=== PATIENT | male | born 1995 | race Caucasian/White ===

== ENCOUNTER 2021-11-04 08:39 | Outpatient (REF) | payer OTHER, SELFPAY ==
[2021-11-04 09:03] LABS: MANUAL DIFF FLAG NO
[2021-11-04 09:46] LABS: Basophils Percent Auto 0.6 % (0-2); Eosinophils Absolute Auto 0.2 X10*3/uL (0.0-0.4); Eosinophils Percent Auto 3.6 % (0-4); Hemoglobin 16.7 g/dl (14.0-18.0); Imm Gran Abs Auto 0.01 X10*3/uL (0.00-0.03); Imm Gran Pct Auto 0.2 % (0.0-0.4); Lymphocytes Absolute Auto 1.2 X10*3/uL (1.2-4.9); Lymphocytes Percent Auto 18.5 % (20-40); Mean Corpuscular HGB Conc 33.4 g/dl (31.0-36.0); Mean Corpuscular Hemoglobin 30.1 pg (27.0-33.0); Mean Corpuscular Volume 90.3 fL (80.0-98.0); Mean Platelet Volume 9.5 fL (9.4-12.4); Monocytes Absolute Auto 0.7 X10*3/uL (0.1-1.2); Monocytes Percent Auto 9.9 % (2-11); Neutrophils Absolute Auto 4.4 x10*3/uL (2.0-8.3); Neutrophils Percent Auto 67.2 % (45-73); Platelet Count 258 X10*3/uL (160-400); Red Blood Count 5.54 X10*6/uL (4.60-5.80); Red Cell Distribution Width 12.2 % (11.0-16.0); White Blood Count 6.6 X10*3/uL (4.8-10.8)
[2021-11-04 10:23] LABS: TSH reflex Free T4 1.03 uIU/mL (0.32-4.0); Vitamin D 25-OH Total 18.2 ng/mL (>30)
[2021-11-04 10:24] LABS: Alanine Aminotransferase 22 U/L (0-40); Albumin Level 4.3 g/dL (3.5-5.0); Alkaline Phosphatase 67 U/L (39-117); Anion Gap 11 (12-20); Aspartate Amino Transferase 20 U/L (5-37); Bilirubin Total 0.7 mg/dL (0.0-1.0); Blood Urea Nitrogen 22 mg/dL (9-16); C Reactive Protein 0.29 mg/dL (< or = 0.50); Calcium 10.1 mg/dL (8.4-10.2); Carbon Dioxide 29 mmol/L (22-29); Chloride 104 mmol/L (96-108); Cholesterol 201 mg/dL; Estimated Glomerular Filt Rate > 60; HDL Cholesterol 45 mg/dL; LDL Cholesterol Calculated 123 mg/dl; Potassium 4.3 mmol/L (3.3-5.1); Rheumatoid Factor 24.7 IU/mL (<15.0); Sodium 140 mmol/L (135-145); Total Protein 7.5 g/dL (6.5-8.0); Triglycerides 168 mg/dL
[2021-11-04 10:39] LABS: Glucose Fasting 53 mg/dL (60-99)
[2021-11-04 10:46] LABS: Appearance Urine CLEAR; Color Urine YELLOW; Glucose Urine UA NEG (NEG); Leukocyte Esterase Urine NEG (NEG); Nitrite Urine NEG (NEG); PH 5.5 (5.0-8.0); Specific Gravity - Urine 1.025 (1.005-1.025); Urine Blood NEG (NEG); Urine Ketones NEG (NEG); Urine Protein NEG (NEG-TRACE)
[2021-11-04 11:06] LABS: Erythrocyte Sedimentation Rate 7 MM/HR (0-15)
[2021-11-04 12:19] LABS: CT PCR NOT DETECTED (Not Detect.); NG PCR NOT DETECTED (Not Detect.)
[2021-11-06 07:52] LABS: HBS Num1 41.79 mIU/mL (0-7.99); HBc Num1 0.18 S/CO (0.00-0.79); HBsAGNum1 0.26 S/CO (0.00-0.99); HIV AB/AG Nonreactive (Nonreactive); HIV Num 1 0.08 S/CO (0.00-0.99); Hepatitis B Core Antibody Nonreactive (Nonreactive); Hepatitis B Surface Antigen Negative (Negative); ~HepC Num1 0.14 S/CO (0.00-0.79); ~Hepatitis B Surface Antibody REACTIVE (Nonreactive); ~Hepatitis C Antibody Nonreactive (Nonreactive)
[2021-11-06 08:38] LABS: Syphilis Screen Nonreactive (Nonreactive)
[2021-11-06 12:06] LABS: Anti Nuclear Antibody Screen NEGATIVE (NEGATIVE)
[2021-11-09 21:26] LABS: HSV 1 IgM IFA Negative (Negative); HSV 2 IgM IFA Negative (Negative)
== END 2021-11-04 08:40 | disposition home or self-care (01) ==
LOC: HO.LAB 08:39
PROVIDERS: Visit Provider Internal Medicine
DX: Z00.00 Encounter for general adult medical examination without abnormal findings (principal); I73.00 Raynaud's syndrome without gangrene; Z76.89 Persons encountering health services in other specified circumstances
CPT/HCPCS: 80053; 80061; 81003; 82306; 84443; 85025; 85652; 86038; 86039; 86140; 86431; 86695; 86696; 86704; 86706; 86780; 86803; 87340; 87389; 87491; 87591

== ENCOUNTER 2022-10-20 10:02 | Outpatient (REF) | payer OTHER, SELFPAY ==
[2022-10-20 10:47] LABS: MANUAL DIFF FLAG NO
[2022-10-20 11:06] LABS: Basophils Absolute Auto 0.1 X10*3/uL (0.0-0.2); Eosinophils Absolute Auto 0.2 X10*3/uL (0.0-0.4); Eosinophils Percent Auto 3.9 % (0-4); Hematocrit 49.2 % (42.0-52.0); Hemoglobin 16.5 g/dl (14.0-18.0); Imm Gran Abs Auto 0.01 X10*3/uL (0.00-0.03); Imm Gran Pct Auto 0.2 % (0.0-0.4); Lymphocytes Absolute Auto 1.4 X10*3/uL (1.2-4.9); Lymphocytes Percent Auto 28.3 % (20-40); Mean Corpuscular HGB Conc 33.5 g/dl (31.0-36.0); Mean Corpuscular Hemoglobin 29.2 pg (27.0-33.0); Mean Corpuscular Volume 87.1 fL (80.0-98.0); Mean Platelet Volume 9.2 fL (9.4-12.4); Monocytes Absolute Auto 0.5 X10*3/uL (0.1-1.2); Monocytes Percent Auto 10.4 % (2-11); Neutrophils Absolute Auto 2.8 x10*3/uL (2.0-8.3); Neutrophils Percent Auto 56.2 % (45-73); Platelet Count 268 X10*3/uL (160-400); Red Blood Count 5.65 X10*6/uL (4.60-5.80); Red Cell Distribution Width 12.2 % (11.0-16.0); White Blood Count 4.9 X10*3/uL (4.8-10.8)
[2022-10-20 11:22] LABS: Appearance Urine Clear; Color Urine Yellow; Glucose Urine UA Negative (Negative); Leukocyte Esterase Urine Negative (Negative); Nitrite Urine Negative (Negative); PH 6.5 (5.0-9.0); Specific Gravity - Urine 1.015 (1.005-1.025); Urine Blood Negative (Negative); Urine Ketones Negative (Negative); Urine Protein Negative (Neg-Trace)
[2022-10-20 11:41] LABS: Alanine Aminotransferase 16 U/L (0-40); Albumin Level 4.3 g/dL (3.5-5.0); Alkaline Phosphatase 67 U/L (39-117); Anion Gap 12 (12-20); Aspartate Amino Transferase 21 U/L (5-37); Bilirubin Total 1.3 mg/dL (0.0-1.0); Blood Urea Nitrogen 20 mg/dL (9-16); C Reactive Protein < 0.10 mg/dL (< or = 0.50); Calcium 9.9 mg/dL (8.4-10.2); Carbon Dioxide 28 mmol/L (22-29); Chloride 104 mmol/L (96-108); Cholesterol 204 mg/dL; Estimated Glomerular Filt Rate > 60; Glucose Fasting 89 mg/dL (60-99); HDL Cholesterol 46 mg/dL; LDL Cholesterol Calculated 139 mg/dl; Potassium 4.8 mmol/L (3.3-5.1); Sodium 139 mmol/L (135-145); Total Protein 7.2 g/dL (6.5-8.0); Triglycerides 97 mg/dL
[2022-10-20 11:51] LABS: Erythrocyte Sedimentation Rate 2 MM/HR (0-15)
[2022-10-20 11:58] LABS: TSH reflex Free T4 0.67 uIU/mL (0.32-4.0)
[2022-10-20 13:52] LABS: CT PCR NOT DETECTED (Not Detect.); NG PCR NOT DETECTED (Not Detect.)
[2022-10-22 09:21] LABS: Syphilis Screen Nonreactive (Nonreactive)
[2022-10-22 09:29] LABS: HBS Num1 35.44 mIU/mL (0-7.99); HBc Num1 0.06 S/CO (0.00-0.79); HIV AB/AG Nonreactive (Nonreactive); HIV Num 1 0.08 S/CO (0.00-0.99); Hepatitis B Core Antibody Nonreactive (Nonreactive); Hepatitis B Surface Antigen Negative (Negative); ~HepC Num1 0.13 S/CO (0.00-0.79); ~Hepatitis B Surface Antibody REACTIVE (Nonreactive); ~Hepatitis C Antibody Nonreactive (Nonreactive)
[2022-10-23 15:14] LABS: Cyclic Citrullinated Peptide <16 UNITS
[2022-10-25 12:39] LABS: HSV 1 IgM IFA Negative (Negative); HSV 2 IgM IFA Negative (Negative)
== END 2022-10-20 10:03 | disposition home or self-care (01) ==
LOC: HO.LAB 10:02
PROVIDERS: Visit Provider Internal Medicine
DX: Z00.00 Encounter for general adult medical examination without abnormal findings (principal); Z11.4 Encounter for screening for human immunodeficiency virus [HIV]; I10 Essential (primary) hypertension; Z20.2 Contact with and (suspected) exposure to infections with a predominantly sexual mode of transmission; E55.9 Vitamin D deficiency, unspecified; E78.00 Pure hypercholesterolemia, unspecified; I73.00 Raynaud's syndrome without gangrene; R30.0 Dysuria; R76.8 Other specified abnormal immunological findings in serum; Z76.89 Persons encountering health services in other specified circumstances
CPT/HCPCS: 0353U; 80053; 80061; 81003; 82306; 84443; 85025; 85652; 86140; 86200; 86695; 86696; 86704; 86706; 86780; 86803; 87340; 87389

== ENCOUNTER 2023-10-22 08:57 | Outpatient (AMB) | payer OTHER, SELFPAY ==
[2023-10-22 08:59] VITALS: BP 100/70; PULSE 77; O2SAT 99; BMI 26.8
--- NOTE | 2023-10-22 08:59 | A.OFFPC_ITS ---
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 Accompanied by: Self / Same As Patient Allergies Penicillins Allergy (Mild, Verified 10/22/23 09:16) Unknown Medication List - Last Reconciled 10/22/23 by Dimitrios Harrell MD cholecalciferol (vitamin D3) 50 mcg PO DAILY multivitamin (Daily Multi-Vitamin tablet) 1 tab PO DAILY Tobacco use date assessed: 10/22/23 Dental Screening Dental Screen Date: 10/22/23 Did you have a dental visit in the last 12 months?: Yes Did you have a dental problem in the last 6 months where you did not have access to dental care?: No Was dental information given to patient?: Patient has dentist HPI Annual Exam HPI Details Patient comes in today for his annual physical examination States that he feels okay He denies any headaches or dizziness Denies any chest pains, no SOB No nausea/vomiting, no abdominal pain No change in bowel habits noted Denies any acute urinary symptoms States that he has been seen by ENT last year for his enlarged tonsils and was advised against T & A as the risks of having his tonsils and adenoids removed outweigh the benefits but patient states that he had a bad bout of tonsillitis again this past August 2023 and he also ended up with gingivitis and he is now debating on whether to request again for reassessment for a tonsillectomy Would again also like to get checked for STDs in addition to his usual tests when he goes to the lab for his yearly check PENDING SALE TO [facility] Medical History Pure hypercholesterolemia Vitamin D deficiency Overweight (BMI 25.0-29.9) Raynaud's disease Enlarged tonsils and adenoids Surgical History No pertinent past surgical history Family History Mother Osteoporosis Father No problems noted. Social History Housing: Apartment Alcohol intake: current Alcohol intake frequency: a few times a week Patient Tobacco Use Status: Never used Tobacco e-Cigarette/Vaping Use: Never Used Second Hand Smoke Exposure: No service: No Current occupational status: employed Current occupation: clinical pharmacist Cognitive needs: No Hearing needs: No Vision needs: No Questionnaire PHQ-9 Over the last 2 weeks, how often have you been bothered by any of the following problems? 1. Little interest or pleasure in doing things: not at all 2. Feeling down, depressed, or hopeless: not at all 3. Trouble falling or staying asleep, or sleeping too much: not at all 4. Feeling tired or having little energy: not at all 5. Poor appetite or overeating: not at all 6. Feeling bad about yourself - or that you are a failure or have let yourself or your family down: not at all 7. Trouble concentrating on things, such as reading the newspaper or watching television: not at all 8. Moving or speaking so slowly that other people could have noticed. Or the opposite - being so fidgety or restless that you have been moving around a lot more than usual: not at all 9. Thoughts that you would be better off or of hurting yourself in some way: not at all Total score: 0 Depression Screening Interpretation: Negative Depression Screening Done: Yes [id number] - PHQ-9 Billing: Yes Source: Developed by Drs. Isaac Bustamante, Dulce Maria Cordoba, Yuniel Zuniga and colleagues, with an educational kiah from [employer]. Thrive Questionnaire Date Thrive assessed: 10/22/23 I am a: Patient What is your living situation today?: I have a steady place to live Within the past 12 months, did the food you bought not last and you didn't have the money to get more?: Never true Within the past 12 months, did you worry whether your food would run out before you got money to buy more?: Never true Do you have trouble paying for medicines?: No Do you have trouble getting transportation to medical appointments?: No Do you have trouble paying your heating and electricity bill?: No Do you have trouble taking care of your child, family member or friend?: No Do you have trouble with day-to-day activities such as bathing, preparing meals, shopping, managing finances, etc.?: No Are you currently unemployed and looking for a job?: No Are you interested in more education?: No Please select the resources that you would like help with: None Currently or been in a relationship where the following occur: no concerns reported AUDIT C Alcohol Use Questionnaire (AUDIT-C) 1. How often do you have a drink containing alcohol?: 2-3 times a week 2. How many drinks containing alcohol do you have on a typical day when you are drinking?: 1 or 2 3. How often do you have six or more drinks on one occasion?: Never Total Score: 3 Score Reviewed/Action Taken: Yes ARPITA-7 AMB Questionnaire ARPITA-7 Date ARPITA - 7 assessed: 10/22/23 Feeling nervous, anxious, or on edge: 0 = Not at all Not being able to stop or control worryin = Not at all Worrying too much about different things: 0 = Not at all Trouble relaxin = Not at all Being so restless that it is hard to sit still: 0 = Not at all Becoming easily annoyed or irritable: 0 = Not at all Feeling afraid as if something awful might happen: 0 = Not at all Total ARPITA-7 score (0-4 normal; 5-9 mild; 10-14 moderate; 15-21 severe): 0 Source: Developed by Drs. Isaac Bustamante, Dulce Maria Cordoba, Yuniel Zuniga and colleagues, with an educational kiah from [employer]. Review of Systems Const Denies chills, Denies fatigue, Denies fever(s), Denies headache(s), Denies malaise and Denies weakness Eyes Denies blurry vision, Denies change in vision, Denies irritation and Denies itchy eyes ENT Reports dysphagia (at times, mild, mostly due to his enlarged tonsils), Denies dizziness, Denies otalgia, Denies headache(s), Denies nasal congestion, Denies neck pain, Denies odynophagia and Denies sore throat Card Denies chest pain, Denies rapid heart rate, Denies irregular heart rhythm, Denies palpitations and Denies dyspnea Resp Denies chest congestion, Denies cough, Denies dyspnea and Denies wheezing GI Denies abdominal pain, Denies bloating, Denies constipation, Reports dysphagia (at times, mild, mostly due to his enlarged tonsils), Denies heartburn, Denies diarrhea, Denies nausea, Denies odynophagia and Denies vomiting Denies hematuria, Denies difficulty urinating, Denies dysuria, Denies urinary frequency and Denies urinary urgency Musc Denies back pain, Denies arthralgias, Denies joint swelling, Denies muscle weakness and Denies neck pain Skin/Breast Denies change in pigmentation, Denies lesions, Denies rash and Denies unusual bruising Neuro Denies dizziness, Denies headache(s), Denies paresthesias and Denies weakness Endo Denies fatigue and Denies palpitations Aller/Immun Denies itchy eyes and Denies wheezing Physical exam (Primary Care) Vital Signs: Last Vital Signs Pulse 77 10/22/23 08:59 BP 100/70 10/22/23 08:59 Pulse Ox 99 10/22/23 08:59 Oxygen Delivery Method Room Air 10/22/23 08:59 BMI result Body Mass Index 26.8 Tobacco/Smoking Status: Tobacco use Status Tobacco use date assessed 10/22/23 10/22/23 09:03 Patient Tobacco Use Status Never used Tobacco 10/22/23 09:03 e-Cigarette/Vaping Use Never Used 10/22/23 09:03 PHQ-9: PHQ-9 Score PHQ-9: Total score 0 10/22/23 09:03 Depression Screening Interpretation: Negative Thrive Assessment: Date of Thrive Assessment Date Thrive assessed 10/22/23 10/22/23 09:03 Currently or been in a relationship where the following occur: no concerns reported Const General: no acute distress, alert and awake Orientation/consciousness: patient oriented x3 [facility] Head: Yes normocephalic and Yes atraumatic Ears: external ears normal, TM's normal bilaterally and EAC's normal General nose exam: No nasal discharge present Face and sinus: Yes normal facial exam and Yes sinuses nontender Mouth: Normal oral and palatal mucosa present and tongue normal Teeth and gingiva: dentition normal Throat: Yes abnormal tonsil (significantly enlarged tonsils/adenoids bilaterally - grade 3) and Yes posterior oropharynx abnormal (narrow oropharynx with significantly enlarged tonsils/adenoids bilaterally) Eyes Eyelids: Yes eyelids normal Conjunctivae: conjunctivae normal Sclerae: sclerae normal Pupils: Equal, round and reactive pupils present EOM: EOMs intact bilaterally Neck Neck: Yes no lymphadenopathy and Yes supple Thyroid: Thyroid normal Lymphatic: no lymphadenopathy noted Resp Auscultation: clear to auscultation bilaterally, no rales and no wheezes Cardio Rate: regular rate Rhythm: regular rhythm Heart sounds: no murmurs GI Palpation (GI): Soft to palpation, nontender and No hepatosplenomegaly present Auscultation: normal bowel sounds General: Yes no CVA tenderness Back/Spine/Pelvis Back: no CVA tenderness Thoracic/Lumbar Spine: thoracic and lumbar spine normal to inspection Skin Lesions: no lesions Rashes: no rashes Neuro General: patient oriented x3, moves all extremities, no focal motor deficits and CN's II-XI intact bilaterally Cranial nerves: Yes Equal, round and reactive pupils present Cognition (Neuro): normal cognition Gait exam (Neuro): Normal gait present Extrem General: Yes no clubbing, cyanosis or edema Psych Thought process: Normal thought process present Assessment and Plan Assessment & Plan (1) Annual physical exam: Code(s): Z00.00 - Encounter for general adult medical examination without abnormal findings Plan: Check labs (2) Pure hypercholesterolemia: Code(s): E78.00 - Pure hypercholesterolemia, unspecified Plan: Reinforced low cholesterol diet Reminded that his LDL cholesterol was at 139 mg/dl when checked last year Will recheck his fasting lipids for follow up (3) Vitamin D deficiency: Code(s): E55.9 - Vitamin D deficiency, unspecified Plan: Continue Vitamin D3 2000 units QD Will recheck his Vitamin D level for follow up (4) Raynaud's disease: Code(s): I73.00 - Raynaud's syndrome without gangrene Qualifiers: Raynaud?s-associated gangrene presence: without gangrene Qualified Code(s): I73.00 - Raynaud's syndrome without gangrene Plan: Symptoms remain stable at present - states that his symptoms flare up only with exposure to cold or extremes of temperature Has been tried on Nifedipine in the past but could not tolerate Rx due to hypotension Has also been reportedly worked up in the past for other potential CTDs and was told that all of his tests came out normal Advised that only his rheumatoid factor came back positive a couple of years ago but his CCP Ab was negative SYLVIA, CRP and ESR all came back normal/negative as well Patient does NOT smoke - reminded again that he should NOT start smoking at all as this will significantly impact his Raynaud's disease if he does (5) Enlarged tonsils and adenoids: Code(s): J35.3 - Hypertrophy of tonsils with hypertrophy of adenoids Plan: Has reportedly been seen by ENT last year and advised against having a tonsillectomy/adenoidectomy done Follow up with ENT as scheduled (6) Insomnia: Code(s): G47.00 - Insomnia, unspecified Qualifiers: Insomnia type: unspecified Qualified Code(s): G47.00 - Insomnia, unspecified Plan: Sleep hygiene reinforced States that he tried OTC Melatonin upon our advice but he ended up with restless leg symptoms from the medication Is presently just trying other non-pharmacologic methods to help him sleep at night (7) Overweight (BMI 25.0-29.9): Code(s): E66.3 - Overweight Plan: Reinforced diet/exercise as tolerated/lose weight (8) Encounter for assessment of STD exposure: Code(s): Z76.89 - Persons encountering health services in other specified circumstances Plan: Per request, will also again send him for STD testing Plan To return in 1 year for his next annual physical examination Orders: Orders Complete Blood Count Auto Diff Today I73.00 - Raynaud's syndrome without gangrene, J35.3 - Hypertrophy of tonsils with hypertrophy of adenoids, Z00.00 - Encounter for general adult medical examination without abnormal findings Vitamin D 25-OH Total Today E55.9 - Vitamin D deficiency, unspecified, I73.00 - Raynaud's syndrome without gangrene, J35.3 - Hypertrophy of tonsils with hypertrophy of adenoids, Z00.00 - Encounter for general adult medical examination without abnormal findings HIV Ab/Ag Today Z20.2 - Contact with and (suspected) exposure to infections with a predominantly sexual mode of transmission Hepatitis B,C Profile Today Z20.2 - Contact with and (suspected) exposure to infections with a predominantly sexual mode of transmission Syphilis Screen Today Z20.2 - Contact with and (suspected) exposure to infections with a predominantly sexual mode of transmission Comprehensive [place]. Panel Fast Today E78.00 - Pure hypercholesterolemia, uns pecified, I73.00 - Raynaud's syndrome without gangrene, J35.3 - Hypertrophy of tonsils with hypertrophy of adenoids, Z00.00 - Encounter for general adult medical examination without abnormal findings Lipid Panel Today E78.00 - Pure hypercholesterolemia, unspecified, I73.00 - Raynaud's syndrome without gangrene, J35.3 - Hypertrophy of tonsils with hypertrophy of adenoids, Z00.00 - Encounter for general adult medical examination without abnormal findings TSH reflex Free T4 Today E78.00 - Pure hypercholesterolemia, unspecified, I73.00 - Raynaud's syndrome without gangrene, J35.3 - Hypertrophy of tonsils with hypertrophy of adenoids, Z00.00 - Encounter for general adult medical examination without abnormal findings UA CC w/rflx Micro + Cult Today I73.00 - Raynaud's syndrome without gangrene, J35.3 - Hypertrophy of tonsils with hypertrophy of adenoids, R30.0 - Dysuria, Z00.00 - Encounter for general adult medical examination without abnormal findings CT NG by PCR Today Z20.2 - Contact with and (suspected) exposure to infections with a predominantly sexual mode of transmission HSV I and II,IHC Today Z20.2 - Contact with and (suspected) exposure to infections with a predominantly sexual mode of transmission Coding Level of Care Code Est Pt Prev Care [id number]([id number]) Diagnoses Annual physical exam Z00.00 Pure hypercholesterolemia E78.00 Vitamin D deficiency E55.9 Raynaud's disease without gangrene I73.00 Raynaud?s-associated gangrene presence: without gangrene Enlarged tonsils and adenoids J35.3 Insomnia, unspecified type G47.00 Insomnia type: unspecified Overweight (BMI 25.0-29.9) E66.3 Encounter for assessment of STD exposure Z76.89
== END 2023-10-22 09:39 | disposition home or self-care (01) ==
PROVIDERS: PCP Internal Medicine; Visit Provider Internal Medicine
DX: Z00.00 Encounter for general adult medical examination without abnormal findings (principal); E78.00 Pure hypercholesterolemia, unspecified; E55.9 Vitamin D deficiency, unspecified; I73.00 Raynaud's syndrome without gangrene; J35.3 Hypertrophy of tonsils with hypertrophy of adenoids; G47.00 Insomnia, unspecified; E66.3 Overweight; Z76.89 Persons encountering health services in other specified circumstances
CPT/HCPCS: 99395

== ENCOUNTER 2023-11-05 08:07 | Outpatient (REF) | payer OTHER, SELFPAY ==
[2023-11-05 08:32] LABS: MANUAL DIFF FLAG NO
[2023-11-05 08:53] LABS: Basophils Absolute Auto 0.1 X10*3/uL (0.0-0.2); Basophils Percent Auto 1.1 % (0-2); Eosinophils Absolute Auto 0.3 X10*3/uL (0.0-0.4); Eosinophils Percent Auto 6.5 % (0-4); Hematocrit 47.2 % (42.0-52.0); Hemoglobin 16.5 g/dl (14.0-18.0); Imm Gran Abs Auto 0.01 X10*3/uL (0.00-0.03); Imm Gran Pct Auto 0.2 % (0.0-0.4); Lymphocytes Absolute Auto 1.4 X10*3/uL (1.2-4.9); Lymphocytes Percent Auto 30.2 % (20-40); Mean Corpuscular Hemoglobin 30.4 pg (27.0-33.0); Mean Corpuscular Volume 87.1 fL (80.0-98.0); Mean Platelet Volume 9.4 fL (9.4-12.4); Monocytes Absolute Auto 0.5 X10*3/uL (0.1-1.2); Monocytes Percent Auto 9.9 % (2-11); Neutrophils Absolute Auto 2.5 x10*3/uL (2.0-8.3); Neutrophils Percent Auto 52.1 % (45-73); Platelet Count 281 X10*3/uL (160-400); Red Blood Count 5.42 X10*6/uL (4.60-5.80); Red Cell Distribution Width 12.6 % (11.0-16.0); White Blood Count 4.7 X10*3/uL (4.8-10.8)
[2023-11-05 09:47] LABS: Alanine Aminotransferase 16 U/L (0-40); Albumin Level 4.2 g/dL (3.5-5.0); Alkaline Phosphatase 63 U/L (39-117); Anion Gap 10 (12-20); Aspartate Amino Transferase 19 U/L (5-37); Bilirubin Total 0.8 mg/dL (0.0-1.0); Blood Urea Nitrogen 21 mg/dL (9-16); Calcium 9.8 mg/dL (8.4-10.2); Carbon Dioxide 29 mmol/L (22-29); Chloride 104 mmol/L (96-108); Cholesterol 186 mg/dL (<200); Estimated Glomerular Filt Rate > 60; Glucose Fasting 88 mg/dL (60-99); HDL Cholesterol 44 mg/dL (>40); LDL Cholesterol Calculated 122 mg/dL (<100); Potassium 4.1 mmol/L (3.3-5.1); Sodium 139 mmol/L (135-145); Total Protein 7.4 g/dL (6.5-8.0); Triglycerides 104 mg/dL (<150)
[2023-11-05 10:03] LABS: TSH reflex Free T4 0.89 uIU/mL (0.32-4.0)
[2023-11-05 11:21] LABS: Appearance Urine Clear; Color Urine Yellow; Glucose Urine UA Negative (Negative); Leukocyte Esterase Urine Negative (Negative); Nitrite Urine Negative (Negative); Specific Gravity - Urine 1.025 (1.005-1.025); Urine Blood Negative (Negative); Urine Ketones Negative (Negative); Urine Protein Negative (Neg-Trace)
[2023-11-05 12:37] LABS: Syphilis Screen Nonreactive (Nonreactive)
[2023-11-05 13:10] LABS: HBS Num1 32.09 mIU/mL (0-7.99); HBc Num1 0.07 S/CO (0.00-0.79); HIV AB/AG Nonreactive (Nonreactive); HIV Num 1 0.06 S/CO (0.00-0.99); Hepatitis B Core Antibody Nonreactive (Nonreactive); Hepatitis B Surface Antigen Negative (Negative); ~HepC Num1 0.15 S/CO (0.00-0.79); ~Hepatitis B Surface Antibody REACTIVE (Nonreactive); ~Hepatitis C Antibody Nonreactive (Nonreactive)
== END 2023-11-05 08:08 | disposition home or self-care (01) ==
LOC: HO.LAB 08:07
PROVIDERS: PCP Internal Medicine; Visit Provider Internal Medicine
DX: Z00.00 Encounter for general adult medical examination without abnormal findings (principal); Z11.4 Encounter for screening for human immunodeficiency virus [HIV]; E55.9 Vitamin D deficiency, unspecified; J35.3 Hypertrophy of tonsils with hypertrophy of adenoids; I73.00 Raynaud's syndrome without gangrene; E78.00 Pure hypercholesterolemia, unspecified; R30.0 Dysuria; Z20.2 Contact with and (suspected) exposure to infections with a predominantly sexual mode of transmission
CPT/HCPCS: 36415; 80053; 80061; 81003; 82306; 84443; 85025; 86704; 86706; 86780; 86803; 87340; 87389

== ENCOUNTER 2024-10-27 08:41 | Outpatient (AMB) | payer OTHER, SELFPAY ==
[2024-10-27 08:44] VITALS: BP 100/66; PULSE 64; O2SAT 99; BMI 26.0
--- NOTE | 2024-10-27 08:44 | A.OFFPC_ITS ---
Vital Signs 10/27/24 08:44 Height 5 ft 5 in Weight 156 lb 6 oz BMI 26.0 BP 100/66 Blood Pressure Location Lt brachial Position Sitting Pulse 64 Pulse Source Pulse Oximeter Pulse Oximetry (%) 99 Oxygen Delivery Method Room Air Intake Visit Reasons: pe Food Counter Attendant Required: No Accompanied by: Self / Same As Patient Allergies Penicillins Allergy (Mild, Verified 10/27/24 09:14) Unknown Medication List - Last Reconciled 10/27/24 by Dimitrios Harrell MD cholecalciferol (vitamin D3) 50 mcg PO DAILY multivitamin (Daily Multi-Vitamin tablet) 1 tab PO DAILY Tobacco use date assessed: 10/27/24 Dental Screening Dental Screen Date: 10/27/24 Did you have a dental visit in the last 12 months?: Yes Did you have a dental problem in the last 6 months where you did not have access to dental care?: No Was dental information given to patient?: Patient has dentist HPI pe HPI Details Patient comes in today for his annual physical examination States that he feels okay He denies any headaches or dizziness Denies any chest pains, no SOB No nausea/vomiting, no abdominal pain No change in bowel habits noted He denies any acute urinary symptoms States that he would like to have STD tests included again with his yearly labs and would also like to get a referral to see an health it specialist to reassess his supposed allergy to pencillin - states that this is something his mother told him about years ago and he is not even sure if he is actually allergic to penicillin or not 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 Social History Housing: Apartment Alcohol intake: current Alcohol intake frequency: a few times a week Patient Tobacco Use Status: Never used Tobacco e-Cigarette/Vaping Use: Never Used Second Hand Smoke Exposure: No service: No Current occupational status: employed Current occupation: clinical pharmacist Cognitive needs: No Hearing needs: No Vision needs: No Questionnaire PHQ-9 Over the last 2 weeks, how often have you been bothered by any of the following problems? 1. Little interest or pleasure in doing things: not at all 2. Feeling down, depressed, or hopeless: not at all 3. Trouble falling or staying asleep, or sleeping too much: not at all 4. Feeling tired or having little energy: not at all 5. Poor appetite or overeating: not at all 6. Feeling bad about yourself - or that you are a failure or have let yourself or your family down: not at all 7. Trouble concentrating on things, such as reading the newspaper or watching television: not at all 8. Moving or speaking so slowly that other people could have noticed. Or the opposite - being so fidgety or restless that you have been moving around a lot more than usual: not at all 9. Thoughts that you would be better off or of hurting yourself in some way: not at all Total score: 0 Depression Screening Interpretation: Negative Depression Screening Done: Yes 37740 - PHQ-9 Billing: Yes Source: Developed by Drs. Isaac Bustamante, Dulce Maria Cordoba, Yuniel Zuniga and colleagues, with an educational kiah from [employer]. Thrive Questionnaire Date Thrive assessed: 10/27/24 I am a: Patient What is your living situation today?: I have a steady place to live Within the past 12 months, did the food you bought not last and you didn't have the money to get more?: Never true Within the past 12 months, did you worry whether your food would run out before you got money to buy more?: Never true Do you have trouble paying for medicines?: No Do you have trouble getting transportation to medical appointments?: No Do you have trouble paying your heating and electricity bill?: No Do you have trouble taking care of your child, family member or friend?: No Do you have trouble with day-to-day activities such as bathing, preparing meals, shopping, managing finances, etc.?: No Are you currently unemployed and looking for a job?: No Are you interested in more education?: No Please select the resources that you would like help with: None Currently or been in a relationship where the following occur: No concerns reported THRIVE Score: 0 AUDIT C Alcohol Use Questionnaire (AUDIT-C) 1. How often do you have a drink containing alcohol?: 2-4 times a month 2. How many drinks containing alcohol do you have on a typical day when you are drinking?: 1 or 2 3. How often do you have six or more drinks on one occasion?: Never Total Score: 2 Score Reviewed/Action Taken: Yes ARPITA-7 AMB Questionnaire ARPITA-7 Date ARPITA - 7 assessed: 10/27/24 Feeling nervous, anxious, or on edge: 0 = Not at all Not being able to stop or control worryin = Not at all Worrying too much about different things: 0 = Not at all Trouble relaxin = Not at all Being so restless that it is hard to sit still: 0 = Not at all Becoming easily annoyed or irritable: 0 = Not at all Feeling afraid as if something awful might happen: 0 = Not at all Total ARPITA-7 score (0-4 normal; 5-9 mild; 10-14 moderate; 15-21 severe): 0 Source: Developed by Drs. Isaac Bustamante, Dulce Maria Cordoba, Yuniel Zuniga and colleagues, with an educational kiah from [employer]. Review of Systems Const Denies chills, Denies daytime sleepiness, Reports difficulty sleeping (see HPI for details), Denies fatigue, Denies fever(s), Denies headache(s), Denies malaise and Denies weakness Eyes Denies blurry vision, Denies change in vision, Denies irritation and Denies itchy eyes ENT Denies dysphagia, Denies dizziness, Denies otalgia, Denies headache(s), Denies nasal congestion, Denies neck pain, Denies odynophagia and Denies sore throat Card Denies chest pain, Denies rapid heart rate, Denies irregular heart rhythm, De nies palpitations and Denies dyspnea Resp Denies chest congestion, Denies cough, Denies dyspnea and Denies wheezing GI Denies abdominal pain, Denies bloating, Denies constipation, Denies dysphagia, Denies heartburn, Denies diarrhea, Denies nausea, Denies odynophagia and Denies vomiting Denies hematuria, Denies difficulty urinating, Denies dysuria, Denies urinary frequency and Denies urinary urgency Musc Denies back pain, Denies arthralgias, Denies joint swelling, Denies muscle weakness and Denies neck pain Skin/Breast Denies change in pigmentation, Denies lesions, Denies rash and Denies unusual bruising Neuro Denies dizziness, Denies headache(s), Denies paresthesias and Denies weakness Endo Denies fatigue and Denies palpitations Aller/Immun Denies itchy eyes and Denies wheezing Physical exam (Primary Care) Vital Signs: Last Vital Signs Pulse 64 10/27/24 08:44 BP 100/66 10/27/24 08:44 Pulse Ox 99 10/27/24 08:44 Oxygen Delivery Method Room Air 10/27/24 08:44 BMI result Body Mass Index 26.0 Tobacco/Smoking Status: Tobacco use Status Tobacco use date assessed 10/27/24 10/27/24 08:48 Patient Tobacco Use Status Never used Tobacco 10/27/24 08:48 e-Cigarette/Vaping Use Never Used 10/27/24 08:48 PHQ-9: PHQ-9 Score PHQ-9: Total score 0 10/27/24 09:29 Depression Screening Interpretation: Negative Thrive Assessment: Date of Thrive Assessment Date Thrive assessed 10/27/24 10/27/24 08:48 Currently or been in a relationship where the following occur: No concerns reported Const General: no acute distress, alert and awake Orientation/consciousness: patient oriented x3 HENMT Head: Yes normocephalic and Yes atraumatic Ears: external ears normal, TM's normal bilaterally and EAC's normal General nose exam: No nasal discharge present Face and sinus: Yes normal facial exam and Yes sinuses nontender Mouth: Normal oral and palatal mucosa present and tongue normal Teeth and gingiva: dentition normal Throat: Yes abnormal tonsil (significantly enlarged tonsils/adenoids bilaterally - grade 3) and Yes posterior oropharynx abnormal (narrow oropharynx with significantly enlarged tonsils/adenoids bilaterally) Eyes Eyelids: Yes eyelids normal Conjunctivae: conjunctivae normal Sclerae: sclerae normal Pupils: Equal, round and reactive pupils present EOM: EOMs intact bilaterally Neck Neck: Yes no lymphadenopathy and Yes supple Thyroid: Thyroid normal Lymphatic: no lymphadenopathy noted Resp Auscultation: clear to auscultation bilaterally, no rales and no wheezes Cardio Rate: regular rate Rhythm: regular rhythm Heart sounds: no murmurs GI Palpation (GI): Soft to palpation, nontender and No hepatosplenomegaly present Auscultation: normal bowel sounds General: Yes no CVA tenderness Back/Spine/Pelvis Back: no CVA tenderness Thoracic/Lumbar Spine: thoracic and lumbar spine normal to inspection Skin Lesions: no lesions Rashes: no rashes Neuro General: patient oriented x3, moves all extremities, no focal motor deficits and CN's II-XI intact bilaterally Cranial nerves: Yes Equal, round and reactive pupils present Cognition (Neuro): normal cognition Gait exam (Neuro): Normal gait present Extrem General: Yes no clubbing, cyanosis or edema Psych Thought process: Normal thought process present Coding Level of Care Code Est Pt Prev Care 18-39y(19517) Diagnoses Annual physical exam Z00.00 Pure hypercholesterolemia E78.00 Vitamin D deficiency E55.9 Raynaud's disease without gangrene I73.00 Raynaud?s-associated gangrene presence: without gangrene Rheumatoid factor positive R76.8 Enlarged tonsils and adenoids J35.3 Allergy history, penicillin Z88.0 Restless sleeper G47.9 Overweight (BMI 25.0-29.9) E66.3 Additional Codes PHQ-9 - 25011 - PHQ-9 Billing: Yes ([id number]) Assessment & Plan Assessment & Plan (1) Annual physical exam: Code(s): Z00.00 - Encounter for general adult medical examination without abnormal findings Category: Medical Plan: Check labs Per request, will again include STD testing also (2) Pure hypercholesterolemia: Code(s): E78.00 - Pure hypercholesterolemia, unspecified Category: Medical Plan: Reinforced low cholesterol diet His LDL cholesterol was at 122 mg/dl when checked last year, which has improved from 139 mg/dl back in 2022 Will recheck his fasting lipids for follow up (3) Vitamin D deficiency: Code(s): E55.9 - Vitamin D deficiency, unspecified Category: Medical Plan: Continue Vitamin D3 2000 units QD Will recheck his Vitamin D level for follow up (4) Raynaud's disease: Code(s): I73.00 - Raynaud's syndrome without gangrene Category: Medical Qualifiers: Raynaud?s-associated gangrene presence: without gangrene Qualified Code(s): I73.00 - Raynaud's syndrome without gangrene Plan: Patient's symptoms remain stable at present - states that his symptoms flare up only with exposure to cold or extremes of temperature He has been tried on Nifedipine in the past but could not tolerate Rx due to hypotension and he prefers not to take any other Rx as much as possible He has also been worked up in the past for other potential CTDs and all of his tests came out normal He was advised that only his rheumatoid factor came back positive a couple of years ago but his CCP Ab was negative SYLVIA, CRP and ESR all came back normal/negative as well Patient does NOT smoke - he is reminded again that he should NOT start smoking at all as smoking will negatively impact his Raynaud's disease (5) Rheumatoid factor positive: Code(s): R76.8 - Other specified abnormal immunological findings in serum Category: Medical Plan: (+) Hx of positive rheumatoid factor a couple of years ago but his CCP Ab was negative All other work ups came back normal/negative as well Will recheck his inflammatory markers for follow up (6) Enlarged tonsils and adenoids: Code(s): J35.3 - Hypertrophy of tonsils with hypertrophy of adenoids Category: Medical Plan: He was referred to and was seen by ENT a couple of years ago and was reportedly advised against having a tonsillectomy/adenoidectomy done unless there is a clear indication to do so Follow up with ENT as scheduled or as needed (7) Allergy history, penicillin: Code(s): Z88.0 - Allergy status to penicillin Category: Medical Plan: Per request, will refer him to an health it specialist to recheck his drug allergy profile (8) Restless sleeper: Code(s): G47.9 - Sleep disorder, unspecified Plan: Patient states that he is a very light sleeper and had more problems with restless legs when he tried taking some OTC Melatonin recently to get some better sleep Will refer him to Sleep Medicine for further evaluation of his sleep issues - suspect that he may actually have PLMD or some heretofore undiagnosed sleep disorder (9) Overweight (BMI 25.0-29.9): Code(s): E66.3 - Overweight Category: Medical Plan: Reinforced diet/exercise as tolerated/lose weight Plan To return in 1 year for his next annual physical examination Orders: Orders SYLVIA Reflex Titer and Pattern Today I73.00 - Raynaud's syndrome without gangre ne, R76.8 - Other specified abnormal immunological findings in serum Erythrocyte Sedimentation Rate Today I73.00 - Raynaud's syndrome without gangrene, R76.8 - Other specified abnormal immunological findings in serum TSH reflex Free T4 Today E78.00 - Pure hypercholesterolemia, unspecified, Z00.00 - Encounter for general adult medical examination without abnormal findings Cyclic Citrullinated Peptide Today R76.8 - Other specified abnormal immunological findings in serum Hepatitis B,C Profile Today Z20.2 - Contact with and (suspected) exposure to infections with a predominantly sexual mode of transmission Syphilis Screen Today Z20.2 - Contact with and (suspected) exposure to infections with a predominantly sexual mode of transmission Rheumatoid Factor Today I73.00 - Raynaud's syndrome without gangrene, R76.8 - Other specified abnormal immunological findings in serum C Reactive Protein Today I73.00 - Raynaud's syndrome without gangrene, R76.8 - Other specified abnormal immunological findings in serum Complete Blood Count Auto Diff Today D64.9 - Anemia, unspecified, Z00.00 - Encounter for general adult medical examination without abnormal findings Comprehensive [place]. Panel Fast Today E78.00 - Pure hypercholesterolemia, unspecified, Z00.00 - Encounter for general adult medical examination without abnormal findings UA CC w/rflx Micro + Cult Today R30.0 - Dysuria, Z00.00 - Encounter for general adult medical examination without abnormal findings Lipid Panel Today E78.00 - Pure hypercholesterolemia, unspecified, Z00.00 - Encounter for general adult medical examination without abnormal findings Vitamin D 25-OH Total Today E55.9 - Vitamin D deficiency, unspecified, Z00.00 - Encounter for general adult medical examination without abnormal findings CT NG by PCR Today Z20.2 - Contact with and (suspected) exposure to infections with a predominantly sexual mode of transmission HIV Ab/Ag Today Z20.2 - Contact with and (suspected) exposure to infections with a predominantly sexual mode of transmission Referrals Sleep Medicine Referral G47.9 - Sleep disorder, unspecified, J35.3 - Hypertrophy of tonsils with hypertrophy of adenoids, R53.82 - Chronic fatigue, unspecified, Z91.89 - Other specified personal risk factors, not elsewhere classified Allergy & Immunology Referral Z88.0 - Allergy status to penicillin
== END 2024-10-27 09:46 | disposition home or self-care (01) ==
PROVIDERS: PCP Internal Medicine; Visit Provider Internal Medicine
DX: Z00.00 Encounter for general adult medical examination without abnormal findings (principal); E78.00 Pure hypercholesterolemia, unspecified; E55.9 Vitamin D deficiency, unspecified; I73.00 Raynaud's syndrome without gangrene; R76.8 Other specified abnormal immunological findings in serum; J35.3 Hypertrophy of tonsils with hypertrophy of adenoids; Z88.0 Allergy status to penicillin; G47.9 Sleep disorder, unspecified; E66.3 Overweight

== ENCOUNTER 2024-10-27 08:41 | Outpatient (REF) | payer OTHER, SELFPAY ==
[2024-10-27 10:17] LABS: MANUAL DIFF FLAG NO
[2024-10-27 10:25] LABS: Basophils Absolute Auto 0.1 X10*3/uL (0.0-0.2); Basophils Percent Auto 1.2 % (0-2); Eosinophils Absolute Auto 0.3 X10*3/uL (0.0-0.4); Eosinophils Percent Auto 5.5 % (0-4); Hematocrit 48.1 % (42.0-52.0); Hemoglobin 16.8 g/dl (14.0-18.0); Lymphocytes Absolute Auto 1.2 X10*3/uL (1.2-4.9); Lymphocytes Percent Auto 25.5 % (20-40); Mean Corpuscular HGB Conc 34.9 g/dl (31.0-36.0); Mean Corpuscular Hemoglobin 30.2 pg (27.0-33.0); Mean Corpuscular Volume 86.5 fL (80.0-98.0); Mean Platelet Volume 9.5 fL (9.4-12.4); Monocytes Absolute Auto 0.4 X10*3/uL (0.1-1.2); Monocytes Percent Auto 8.2 % (2-11); Neutrophils Absolute Auto 2.9 x10*3/uL (2.0-8.3); Neutrophils Percent Auto 59.6 % (45-73); Platelet Count 256 X10*3/uL (160-400); Red Blood Count 5.56 X10*6/uL (4.60-5.80); Red Cell Distribution Width 12.4 % (11.0-16.0); White Blood Count 4.9 X10*3/uL (4.8-10.8)
[2024-10-27 10:29] LABS: Appearance Urine Clear; Color Urine Yellow; Glucose Urine UA Negative (Negative); Leukocyte Esterase Urine Negative (Negative); Nitrite Urine Negative (Negative); PH 6.5 (5.0-9.0); Urine Blood Negative (Negative); Urine Ketones Negative (Negative); Urine Protein Negative (Neg-Trace)
[2024-10-27 10:54] LABS: Rheumatoid Factor 25.2 IU/mL (<15.0)
[2024-10-27 11:06] LABS: Erythrocyte Sedimentation Rate 2 MM/HR (0-15)
[2024-10-27 11:10] LABS: Alanine Aminotransferase 24 U/L (0-40); Albumin Level 4.5 g/dL (3.5-5.0); Alkaline Phosphatase 64 U/L (39-117); Anion Gap 10 (12-20); Aspartate Amino Transferase 42 U/L (5-37); Bilirubin Total 0.8 mg/dL (0.0-1.0); Blood Urea Nitrogen 19 mg/dL (9-16); C Reactive Protein < 0.04 mg/dL (< or = 0.50); Calcium 9.8 mg/dL (8.4-10.2); Carbon Dioxide 25 mmol/L (22-29); Chloride 107 mmol/L (96-108); Cholesterol 187 mg/dL (<200); Estimated Glomerular Filt Rate > 60; Glucose Fasting 88 mg/dL (60-99); HDL Cholesterol 53 mg/dL (>40); LDL Cholesterol Calculated 119 mg/dL (<100); Potassium 4.8 mmol/L (3.3-5.1); Sodium 137 mmol/L (135-145); Triglycerides 79 mg/dL (<150)
[2024-10-27 11:16] LABS: Syphilis Screen Nonreactive (Nonreactive)
[2024-10-27 11:19] LABS: HBS Num1 33.73 mIU/mL (0-7.99); HBc Num1 0.11 S/CO (0.00-0.79); HBsAGNum1 0.37 S/CO (0.00-0.99); HIV AB/AG Nonreactive (Nonreactive); HIV Num 1 0.08 S/CO (0.00-0.99); Hepatitis B Core Antibody Nonreactive (Nonreactive); Hepatitis B Surface Antigen Negative (Negative); ~HepC Num1 0.13 S/CO (0.00-0.79); ~Hepatitis B Surface Antibody REACTIVE (Nonreactive); ~Hepatitis C Antibody Nonreactive (Nonreactive)
[2024-10-27 11:53] LABS: TSH reflex Free T4 0.63 uIU/mL (0.32-4.0); Vitamin D 25-OH Total 53.2 ng/mL (>30)
[2024-10-29 14:53] LABS: Anti Nuclear Antibody Screen NEGATIVE (NEGATIVE)
[2024-10-30 18:28] LABS: Cyclic Citrullinated Peptide <16 UNITS
== END 2024-10-27 08:42 | disposition home or self-care (01) ==
LOC: HO.LAB 08:41
PROVIDERS: PCP Internal Medicine; Visit Provider Internal Medicine
DX: Z00.00 Encounter for general adult medical examination without abnormal findings (principal); E78.00 Pure hypercholesterolemia, unspecified; E55.9 Vitamin D deficiency, unspecified; I73.00 Raynaud's syndrome without gangrene; R76.8 Other specified abnormal immunological findings in serum; G47.9 Sleep disorder, unspecified; E66.3 Overweight; J35.3 Hypertrophy of tonsils with hypertrophy of adenoids; Z20.2 Contact with and (suspected) exposure to infections with a predominantly sexual mode of transmission; Z79.899 Other long term (current) drug therapy; Z88.0 Allergy status to penicillin; D64.9 Anemia, unspecified; R30.0 Dysuria; R53.82 Chronic fatigue, unspecified; Z91.89 Other specified personal risk factors, not elsewhere classified
CPT/HCPCS: 36415; 80053; 80061; 81003; 82306; 84443; 85025; 85652; 86038; 86140; 86200; 86431; 86704; 86706; 86780; 86803; 87340; 87389; 96127

== ENCOUNTER 2024-11-03 10:05 | Outpatient (AMB) | payer OTHER, SELFPAY ==
--- NOTE | 2024-11-03 10:13 | A.OFFVIS_ITS ---
Vital Signs 11/03/24 10:18 Height 5 ft 5 in Weight 156 lb 6 oz BMI 26.0 BP 110/74 Blood Pressure Location Lt brachial Position Sitting Pulse 110 H Pulse Source Pulse Oximeter Pulse Oximetry (%) 99 Oxygen Delivery Method Room Air Intake Visit Reasons: INP-Chronic Fatigue/Sleep disorders Intake Note: Patient presents for a new patient evaluation for sleep disorder. Patient r leylartlanie waking up very tired in the mornings and also is a light sleeper. Dehydration Unit Operator Required: No Accompanied by: Self / Same As Patient Allergies Penicillins Allergy (Mild, Verified 11/03/24 10:16) Unknown Medication List - Last Reconciled 11/03/24 by Brien Stafford PA-C cholecalciferol (vitamin D3) 50 mcg PO DAILY multivitamin (Daily Multi-Vitamin tablet) 1 tab PO DAILY HPI Comments Details: 29 year old male presents for sleep evaluation referred to us by his PCP, Dr. Harrell. He goes to bed at 10pm wakes up at 6am, no bathroom breaks. He is a side sleeper, and ends up on his stomach, tosses and turns alot. He feels groggy in the morning, and sleepy in the afternoons. 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 He denies morning headaches, memory issues. He saw ENT for his enlarged tonsils, they encouraged him not to remove them, as he had Strep 1x in his life. He grinds his teeth at night, does not have a mouth-gaurd. [facility] Nifedine BP is 100/60 tends to run low. He tried taking Melatonin 5mg at night for 2 weeks to see if this would help, and it made his RLS worse. RLS: Legs feel like he can run a marathon, like he needs to move his legs constantly to feel comfortable, he does calf raises before he goes to bed until they hurt and that helps him to fall asleep. Runs on the treadmill 3-4x per week. Denies pins or needles, muscle cramps or spasms, and or electric shock like sensation. [facility] Medical History Pure hypercholesterolemia Vitamin D deficiency Overweight (BMI 25.0-29.9) Raynaud's disease Enlarged tonsils and adenoids Surgical History No pertinent past surgical history Family History Mother Osteoporosis Father No problems noted. Social History Housing: Apartment Alcohol intake: current Alcohol intake frequency: a few times a week Patient Tobacco Use Status: Never used Tobacco e-Cigarette/Vaping Use: Never Used Second Hand Smoke Exposure: No service: No Current occupational status: employed Current occupation: clinical pharmacist Cognitive needs: No Hearing needs: No Vision needs: No Review of Systems Const All systems reviewed & are unremarkable except as noted in HPI and below Physical Exam Vital Signs: Last Vital Signs Pulse 110 H 11/03/24 10:18 BP 110/74 11/03/24 10:18 Pulse Ox 99 11/03/24 10:18 Oxygen Delivery Method Room Air 11/03/24 10:18 BMI result Body Mass Index 26.0 Const General: cooperative, comfortable and no acute distress Nutritional Appearance: average body habitus Orientation/consciousness: patient oriented x3 Eyes Pupils: Equal, round and reactive pupils present Neck Neck: Yes full ROM Resp Effort & Inspection: normal respiratory effort and able to speak in complete sentences Neuro General: patient oriented x3 and moves all extremities Cranial nerves: Yes CN's II-XII intact bilaterally, Yes Facial sensation intact/muscles of mastication intact, Yes Equal, round and reactive pupils present, Yes Normal accommodation reflex present, Yes Bilaterally intact EOM present, Yes Nystagmus not present, Yes Normal facial strength present, Yes Midline tongue present, Yes Ability to bilaterally rotate head present and Yes Ability to bilaterally elevate shoulders present Cognition (Neuro): normal cognition Gait exam (Neuro): Normal gait present Motor exam (neuro): 5/5 motor strength present throughout, Pronator motor function not present, no tremor noted, Normal motor muscle tone present throughout and Abnormal motor strength present Deep tendon reflexes (DTR's): Right triceps reflex intensity grade: 2+, Left triceps reflex intensity grade: 2+, Rt Biceps (C5, C6): 2+, Left biceps reflex intensity grade: 2+, Right brachioradialis reflex intensity grade: 2+, Left brachioradialis reflex intensity grade: 2+, Right patellar reflex intensity grade: 2+ and Left patellar reflex intensity grade: 2+ Psych Appearance: grossly normal Speech and movement: Normal speech and movement present Affect: normal affect Attitude: cooperative Thought process: Normal thought process present Thought content: Normal thought content present Insight: Good insight present (Psych) Judgement: Good judgement present (Psych) Results Reviewed Results Reviewed: Labs : RF is elevated 25 LDL is high Raynauds Phenomenon Assessment & Plan Assessment & Plan (1) Insomnia: Code(s): G47.00 - Insomnia, unspecified Category: Medical Qualifiers: Insomnia type: unspecified Qualified Code(s): G47.00 - Insomnia, un specified (2) Excessive daytime sleepiness: Code(s): G47.19 - Other hypersomnia Category: Medical (3) RLS (restless legs syndrome): Code(s): G25.81 - Restless legs syndrome Category: Medical Plan HST : Excessive Daytime Fatigue RLS? Diet and lifestyle management, he is a runner and does calf raises nightly, prior to bed. Magnesium Oxide 400 mg B6 - 400mg, RL Cream, [place], [place] Cream, weighted blankets. Labs: B12/ Folate/MMA/ Iron/ TSH/ Vit D Sleep Hygiene: Regular sleep schedule, no devices in bed, cool dark environment, red light therapy is helpful. Orders: Orders RT home sleep study Today G47.00 - Insomnia, unspecified Homocysteine Today G25.81 - Restless legs syndrome, G47.19 - Other hypersomnia IRON PROFILE Today G25.81 - Restless legs syndrome, G47.19 - Other hypersomnia Vitamin D 25-OH Total Today G25.81 - Restless legs syndrome, G47.19 - Other hypersomnia Vitamin B12 and Folate Today G25.81 - Restless legs syndrome, G47.19 - Other hypersomnia Methylmalonic Acid Today G47.19 - Other hypersomnia Medications: New magnesium oxide Take one tablet daily at bedtime for RLS 400 mg PO DAILY 30 tabs 3RF RLS MDD 400mg pyridoxine (vitamin B6) Take one tablet by mouth daily at bedtime. 250 mg PO DAILY 30 tabs 3RF G25.81 - Restless legs syndrome Coding Level of Care Code New Pt Level 4 (40227) Diagnoses Insomnia, unspecified type G47.00 Insomnia type: unspecified Excessive daytime sleepiness G47.19 RLS (restless legs syndrome) G25.81 Sleep Questionnaire Difficulty falling asleep: Yes Difficulty staying asleep?: Yes Number of arousals: 1-2 Snoring: Yes Witnessed apneas: No Gasping arousals: No Nocturia: No GERD: No Vivid dreams: No Acting out dreams: No Abnormal behavior in sleep: Yes (sleep talking ) Abnormal movements in sleep: No Morning headaches: No Excessive daytime sleepiness: Yes Daytime naps: No Restless legs: Yes Hallucinations: No Sleep paralysis: No Drop attacks: No Sleep Study: No CPAP: No
[2024-11-03 10:18] VITALS: BP 110/74; PULSE 110; O2SAT 99; BMI 26.0
== END 2024-11-03 10:54 | disposition home or self-care (01) ==
PROVIDERS: PCP Internal Medicine; Visit Provider Physician Assistant Medical
DX: G47.00 Insomnia, unspecified (principal); G47.19 Other hypersomnia; G25.81 Restless legs syndrome
CPT/HCPCS: 99204

== ENCOUNTER → 2024-11-03 10:05 | Outpatient (BNVA) | payer OTHER, SELFPAY | PROVIDERS: PCP Internal Medicine; Visit Provider Physician Assistant Medical ==

== ENCOUNTER → 2024-12-29 09:04 | Outpatient (REF) | payer OTHER, SELFPAY ==
[2024-12-29 10:51] LABS: Iron 132 mcg/dL (45-160); Percent Iron Saturation 58 % (15-50); Total Iron Binding Capacity 229 mcg/dL (228-428); Unsaturated Iron Binding 97 ug/dL
[2024-12-29 11:19] LABS: Folate 16.6 ng/mL (> or = 4.0); Vitamin B12 653 pg/mL (200-900)
[2024-12-30 17:27] LABS: Homocysteine 6.3 umol/L (<11.4)
[2025-01-02 03:13] LABS: Methylmalonic Acid 224 nmol/L (55-335)
== END ==
LOC: HO.SL 09:04
PROVIDERS: PCP Internal Medicine; Visit Provider Physician Assistant Medical
DX: G25.81 Restless legs syndrome (principal); G47.19 Other hypersomnia
CPT/HCPCS: 36415; 82306; 82607; 82746; 83090; 83540; 83921

== ENCOUNTER 2025-02-02 09:27 | Outpatient (AMB) | payer OTHER, SELFPAY ==
[2025-02-02 09:32] VITALS: BP 114/76; PULSE 83; O2SAT 99; BMI 26.2
--- NOTE | 2025-02-02 09:32 | MHC.OFFVIS ---
Vital Signs 02/02/25 09:32 Height 5 ft 5 in Weight 157 lb 4 oz BMI 26.2 BP 114/76 Blood Pressure Location Lt brachial Position Sitting Pulse 83 Pulse Source Pulse Oximeter Pulse Oximetry (%) 99 Oxygen Delivery Method Room Air Intake Visit Reasons: 3 mnts f/u appt Intake Note: Patient presents follow up Insomnia medication. Labs in chart, HST booked for 02/23. Allergies No Known Allergies Allergy (Verified 02/02/25 09:35) HPI Comments Details: 29 year old male presents for sleep evaluation referred to us by his PCP, Dr. Harrell. He goes to bed at 10pm wakes up at 6am, no bathroom breaks. He is a side sleeper, and ends up on his stomach, tosses and turns alot, noise from upstairs neighbors tends to keep him up also. He feels groggy in the morning, and sleepy in the afternoons, he is a Pharmacist and sits for prolonged periods. He denies morning headaches, memory issues. He grinds his teeth at night, does not have a mouth-gaurd, will f/u with sleep dentistry. He was dx with Raynauds Phenomenon, [place] in 2014, placed on IR Nifedine BP was 100/60 so he discontinued it. He tried taking Melatonin 5mg at night for 2 weeks to see if this would help, and it made his RLS worse. Labs reviewed with him today, Ferritin not completed, will f/u after HST is completed. RLS: Legs feel like he can run a marathon, like he needs to move his legs constantly to feel comfortable, he does calf raises before he goes to bed until they hurt and that helps him to fall asleep. Runs on the treadmill 3-4x per week. Denies pins or needles, muscle cramps or spasms, and or electric shock like sensation. [facility] Medical History Pure hypercholesterolemia Vitamin D deficiency Overweight (BMI 25.0-29.9) Raynaud's disease Enlarged tonsils and adenoids Surgical History No pertinent past surgical history Family History Mother Osteoporosis Father No problems noted. Social History Housing: Apartment Alcohol intake: current Alcohol intake frequency: a few times a week Patient Tobacco Use Status: Never used Tobacco e-Cigarette/Vaping Use: Never Used Second Hand Smoke Exposure: No service: No Current occupational status: employed Current occupation: clinical pharmacist Cognitive needs: No Hearing needs: No Vision needs: No Physical Exam Vital Signs: Last Vital Signs Pulse 83 02/02/25 09:32 BP 114/76 02/02/25 09:32 Pulse Ox 99 02/02/25 09:32 Oxygen Delivery Method Room Air 02/02/25 09:32 BMI result Body Mass Index 26.2 Const General: cooperative, comfortable and no acute distress Nutritional Appearance: average body habitus Orientation/consciousness: patient oriented x3 Eyes Pupils: Equal, round and reactive pupils present Neck Neck: Yes full ROM Resp Effort & Inspection: normal respiratory effort and able to speak in complete sentences Neuro General: patient oriented x3 and moves all extremities Cranial nerves: Yes CN's II-XII intact bilaterally, Yes Facial sensation intact/muscles of mastication intact, Yes Equal, round and reactive pupils present, Yes Normal accommodation reflex present, Yes Bilaterally intact EOM present, Yes Nystagmus not present, Yes Normal facial strength present, Yes Midline tongue present, Yes Ability to bilaterally rotate head present and Yes Ability to bilaterally elevate shoulders present Cognition (Neuro): normal cognition Gait exam (Neuro): Normal gait present Motor exam (neuro): 5/5 motor strength present throughout, Pronator motor function not present, no tremor noted, Normal motor muscle tone present throughout and Abnormal motor strength present Deep tendon reflexes (DTR's): Right triceps reflex intensity grade: 2+, Left triceps reflex intensity grade: 2+, Rt Biceps (C5, C6): 2+, Left biceps reflex intensity grade: 2+, Right brachioradialis reflex intensity grade: 2+, Left brachioradialis reflex intensity grade: 2+, Right patellar reflex intensity grade: 2+ and Left patellar reflex intensity grade: 2+ Psych Appearance: grossly normal Speech and movement: Normal speech and movement present Affect: normal affect Attitude: cooperative Thought process: Normal thought process present Thought content: Normal thought content present Insight: Good insight present (Psych) Judgement: Good judgement present (Psych) Assessment & Plan Assessment & Plan (1) Insomnia: Code(s): G47.00 - Insomnia, unspecified Category: Medical Qualifiers: Insomnia type: unspecified Qualified Code(s): G47.00 - Insomnia, unspecified (2) Excessive daytime sleepiness: Code(s): G47.19 - Other hypersomnia Category: Medical (3) RLS (restless legs syndrome): Code(s): G25.81 - Restless legs syndrome Category: Medical Plan HST : Excessive Daytime Fatigue will f/u after sleep study is completed. RLS? Diet and lifestyle management, he is a runner and does calf raises nightly, prior to bed. Continue Magnesium Oxide 400 mg B6 - 400mg, RL Cream, [place], Asper Cream, weighted blankets. Labs: are normal will check ferritin continue multivitamin and vitamin D as needed Sleep Hygiene: Regular sleep schedule, no devices in bed, cool dark environment, red light therapy is helpful. Orders: Orders Ferritin Today G25.81 - Restless legs syndrome, G47.19 - Other hypersomnia Patient Instructions: Sleep Hygiene provided: set a scheduled bedtime and wake time to help regulate the circadian rhythm and balance the release of pituitary hormones. Sleep in a dark room, temperatures below 68 degrees, and no devices n bed. Limit caffeinated products 6 hours prior to bed, and limit fluids 2-4 hours prior to bed. Gentle night yoga, diffusing essential oils, and playing soft music can be relaxing. RLS: Magnilife is helpful topically, or Restless Leg Cream topically. Continue Vitamin D and Multivitamin as needed. Unable to complete HST due to travel and re-scheduling, please complete HST and f/u in 3 months. Coding Level of Care Code Est Pt Level 4 (41909) Diagnoses Insomnia, unspecified type G47.00 Insomnia type: unspecified Excessive daytime sleepiness G47.19 RLS (restless legs syndrome) G25.81 Time Spent (min) 30
--- OUTSIDE RECORDS SUMMARY | 2025-02-02 10:21 | XMS_ITS | Clinical Summary ---
Author Organization [facility] Address [address] [place] [address] Care Team Providers Care Specialist Icu Name Role Phone Unavailable Primary Care Provider Unavailabl e Source Comments PLEASE NOTE, if this patient is a minor, it may be UNLAWFUL to discuss sensitive information that is contained in these records (such as FAMILY PLANNING, MENTAL HEALTH or SUBSTANCE ABUSE) with the minor patient's parent or other person without the patient's specific authorization.[facility] Allergies Active Allergy Reactions Criticality Noted Date Comments Penicillins 08/08/2023 Medications chlorhexidine (PERIDEX) 0.12 % solutionIndicati ons:ANUG Swish and spit 15 mL 2 (two) times daily 15 mL 1 08/20/2023 Active Active Problems No known active problems Immunizations Immunization Administration Dates Next Due Flu, Preservative Free 07/05/2023,06/20/2022, HEP B, PED/ADOL 11/26/2001,06/23/2001,05/21/2001 Hep B, Adult/Adol (ENERGIX/RECOMBIVAX) 10/21/2012,05/08/2012,04/08/2012 History Of Varicella 08/14/1996 MMR (MMR II/Priorix) 01/12/1999,08/14/1994 Moderna COVID-19 Vaccine, re d cap blue label, 12+ Primary Series 11/07/2020,10/10/2020 PFIZER COVID VACCINE, PURPLE CAP, 12+ 10/11/2021 PPD 03/03/2024, 3,04/20/2021,2019,02/16/2019,02/26/2018,04/09/2017,0 03/31/2012 Clean TeQ COVID-19 Vac cine Bivalent, (MEJIA PFIZER-BIONTECH COVID-19 VACCINE BIVALENT, (MEJIA CAP 06/29/2022 TDAP 03/26/2017,11/01/2010 Varicella, Live Vaccine 08/14/1996 Social History Tobacco Use Types Packs/Day Years Used Date Smoking Tobacco: Never Smokeless Tobacco: Never Tobacco Cessation:Counseling Given: Not Answered Social Connections Answer Date Recorded Connectedness 0 06/25/2024 Financial Resource Strain Answer Date R ecorded Financial Resource Strain 0 2020 Stress Answer Date Recorded Stress 0 06/13/2021 Physical Activity Answer Date Recorded Physical Activity 0 06/13/2021 Food Insecurity Answer Date Recorded Food 0 07/09/2024 Transportation Needs Answer Date Record ed Transportation 0 06/13/2021 Housing Stability Answer Date Recorded Housing 0 06/13/2021 Safety and Environment Answer Date Charly rded Safety 0 06/13/2021 Utilities Answer Date Recorded Utilities 0 06/13/2021 Employment Answer Date Recorded Stress 0 06/25/2024 Sex and Gender Information Value Date Recorded Sex Assigned at Male 06/14/2021 7:13 AM PDT Legal Sex Male 1:48 PM PDT Gender Identity Male 06/14/2021 7:13 AM PDT Sexual Orientation Straight 06/14/2021 7: 13 AM PDT Last Filed Vital Signs Vital Sign Reading Time Taken Comments Blood Pressure 124/78 08/20/2023 9:04 AM EST Pulse 78 08/20/2023 9:04 AM EST Temperature - - Respiratory Rate - - Oxygen Saturation - - Inhaled Oxygen Concentration - - Weight - - Height - - Body Mass Index - - Plan of Treatment Health Maintenance Due Date Last Done Comments Anxiety Screening 1993 Dental FMX/[place] 1993 Tobacco Screening 1993 HIV Screening 2008 Dental BW 12/15/2023 12/12/2022 Dental Examination 12/15/2023 12/12/2022 Dental Perio Charting 12/15/2023 12/12/2022 [id number] ( season) 2024 06/29/2022, 10/11/2021, 11/07/2020, Additional history exists Imm-Influenza (#1) 2024 07/05/2023, 0 06/20/2022, 07/13/2021, Additional history exists Dental Prophy 08/15/2024 08/13/2023, 12/12/2022 Alcohol and Drug Screen 10/14/2024 Depression Annual Screen 10/14/2024 Hypertension Screening (#1) 08/19/2026 Imm-DTaP/Tdap/Td (8 - Td or Tdap) 03/26/2027 03/26/2017, 11/01/2010, 01/12/1999, Additional history exists Imm-Hepatitis B Completed 10/21/2012, 04/14, 04/08/2012, Additional history exists Hepatitis C Screening Completed 03/22/2014 Procedures Procedure Name Priority Date/Time Associated Diagnosis Comments Full PROPHYLAXIS - ADULT Routine 023 9:10 AM EDT ANUG COMP PERIODONTAL EVALUATION - NEW/EST PATIENT Routine 12/12/2022 9:00 AM EST Need for prophylactic measure BITEWINGS - FOUR RADIOGRAPHIC IMAGES Routine 12/12/2022 9:00 AM EST Need for prophylactic measure PERIODIC ORAL EVALUATION ESTABLISHED PATIENT Routine 12/12/2022 9:00 AM EST Need for prophylactic measure from Last 3 Months or Most Recently Relevant to Health Maintenance Insurance [facility] ([facility]) Member Subscriber Plan / Payer (Ef fective 2021-Present) Name:Jg Cueto Relation to Subscriber:Self Name:Jg Cueto Payer ID:[id number] Group ID:Not on file Type:[employer] Address: [address] [place] [id number] [place] [address] [facility]
== END 2025-02-02 10:04 | disposition home or self-care (01) ==
LOC: HO.HSMS 09:28
PROVIDERS: PCP Internal Medicine; Visit Provider Physician Assistant Medical
DX: G47.00 Insomnia, unspecified (principal); G47.19 Other hypersomnia; G25.81 Restless legs syndrome
CPT/HCPCS: 99214

== ENCOUNTER → 2025-02-02 09:27 | Outpatient (BNVA) | payer OTHER, SELFPAY | PROVIDERS: PCP Internal Medicine; Visit Provider Physician Assistant Medical ==

== ENCOUNTER → 2025-02-23 08:05 | Outpatient (REF) | payer OTHER, SELFPAY ==
--- OUTSIDE RECORDS SUMMARY | 2025-02-23 08:08 | XMS_ITS | Clinical Summary ---
Author Organization [facility] Address [address] [place] [address] Care Team Providers Care Artificial Intelligence Specialist Name Role Phone Unavailable Primary Care Provider [...] CAP, 12+ 10/11/2021 PPD 03/03/2024, 3,04/20/2021,2019,02/16/2019,02/26/2018,04/09/2017,0 03/31/2012 General Sentiment COVID-19 Vac cine Bivalent, (MEJIA PFIZER-BIONTECH COVID-19 VACCINE BIVALENT, (MEJIA CAP 06/29/2022 TDAP 03/26/2017,11/01/2010 Varicella (Varivax), Live Vaccine 08/14/1996 Social History Tobacco Use [...] 12/15/2023 12/12/2022 Dental Perio Charting 12/15/2023 12/12/2022 [id number] ( season) 2024 06/29/2022, 10/11/2021, 11/07/2020, Additional [...] Most Recently Relevant to Health Maintenance Insurance [facility] ([facility]) Member Subscriber Plan / Payer (Ef fective 2021-Present) Name:Jg Cueto Relation to Subscriber:Self Name:Jg Cueto Payer ID:[id number] Group ID:Not on file Type:[employer] Address: [address] [place] [id number] [place] [address] DENTAL [facility]
== END ==
LOC: HO.SL 08:05
PROVIDERS: PCP Internal Medicine; Visit Provider Physician Assistant Medical
DX: G47.19 Other hypersomnia (principal); G25.81 Restless legs syndrome; G47.09 Other insomnia
CPT/HCPCS: 95806

== ENCOUNTER → 2025-02-23 08:22 | Outpatient (BNV) | payer OTHER, SELFPAY | PROVIDERS: PCP Internal Medicine; Visit Provider Internal Medicine | DX: R06.83 Snoring (principal); G47.10 Hypersomnia, unspecified | CPT/HCPCS: 95806 ==